=== PATIENT | male | born 1975 | race Caucasian/White ===

== ENCOUNTER 2024-02-24 11:03 | Outpatient (CLI) | payer OTHER, SELFPAY ==
--- NOTE | 2024-02-24 11:15 | CRLHL7_ITS ---
For Patients: As a result of the Century Cures Act, medical imaging exams and procedure reports are released immediately into your electronic medical record. You may view this report before your referring provider. If you have questions, please contact your health care provider. Technique: Double-contrast esophagram performed after the uneventful administration of effervescent crystals and thick barium followed by thin barium. Fluoroscopy time 1 minute 39 seconds. Indication: Dysphagia Comparison: None. Findings: Esophagus: No hernia or mucosal irregularity. No stricture. 13 millimeter barium tablet shows delayed transit but eventually makes it to the stomach with the assistance of water and thick barium. Gastroesophageal reflux: None. Impression: Delayed transit of barium tablet through the esophagus into the stomach. The remainder of the study is normal. Dictated by Suleiman Mccrary MD @ 02/24/2024 12:51:41 PM (Electronically Signed)
== END 2024-02-24 11:04 | disposition home or self-care (01) ==
LOC: RAD 11:05
PROVIDERS: PCP Physician Assistant; Visit Provider Physician Assistant
DX: R13.19 Other dysphagia (principal)
CPT/HCPCS: 74221